=== PATIENT | female | born 1960 | race Hispanic/Latino ===

== ENCOUNTER 2018-06-17 06:48 | Emergency (ER) | payer OTHER ==
[2018-06-17 06:59] VITALS: BMI 27.8
[2018-06-17] MEDS ORDERED: Sodium Chloride 0.9% 1,000 ML IV STA (07:57)
--- NOTE | 2018-06-17 07:59 | ED PDOC ---
HPI: Headache History/Exam Limitations: no limitations Onset/Duration Of Symptoms: Hrs Current Symptoms Are (Timing): Better Severity: Mild Quality: Sharp Associated Symptoms: denies: Blurred Vision Additional History Per: Patient Additional Complaint(s): 58 y/o F w hx of migraines presented to ED complaining of intermittent, nonradiating sharp headache that began about 2:30am today, awaking her from sleep. She reports headache was 8-9/10, lasting for 3-4 minutes, localized to rt side of head ( similar to location of migraine headaches). She endorses that headache returned at 5am while she was at work with similar characteristics. She took 1 tab of sumigram (which she usually takes for her migraines), and headache has resolved since then. She denies any visual, sleep or weight changes, slurred speech, n,v, head trauma. PMH: migraines, herniated disc, vit d deficiency, hypercholesterolemia Meds: Sumigram, crestor, vit d supplements Allergies: denies Surghx: right retina surgery 1 month ago Famhx: noncontributory Sochx: denies all 12 points reviewed and are neg unless otherwise mentioned in HPI <Maricel Adame - Last Filed: 06/17/18 11:14> <Campbell Hartman - Last Filed: 06/17/18 12:52> Time Seen by Provider: 06/17/18 07:12 Chief Complaint (Nursing): Headache Supervising Attending Note - Supervising Attending Note The Documented history was done by the: Physician Noodle Catalyst Maker The documented physical exam was done by the: Physician Noodle Catalyst Maker The documented procedures were done by the: Physician Noodle Catalyst Maker - Attestation: I have personally seen and examined this patient.: Yes I have fully participated in the care of the patient.: Yes I have reviewed all pertinent clinical information: Yes - Notes: Notes:: Headache similar to previous migraines. Not worst in her life. No neck pain. <Campbell Hartman - Last Filed: 06/17/18 12:52> Past Medical History Vital Signs: Last Vital Signs Temp 97.8 F 06/17/18 06:59 Pulse 59 L 06/17/18 06:59 Resp 18 06/17/18 06:59 BP 135/76 04/16/19 06:59 Pulse Ox 100 06/17/18 06:59 - Medical History PMH: Hypercholesterolemia, Migraine, Mitral Valve Prolapse - Family History Family History: States: No Known Family Hx <Maricel Adame - Last Filed: 06/17/18 11:14> Vital Signs: Last Vital Signs Temp 98 F 06/17/18 11:04 Pulse 69 06/17/18 11:04 Resp 16 06/17/18 11:04 BP 117/71 06/17/18 11:04 Pulse Ox 100 06/17/18 11:17 <Campbell Hartman - Last Filed: 06/17/18 12:52> - Home Medications Home Medications: Ambulatory Orders Medication Instructions Recorded Aspirin 81 mg PO DAILY 12/26/13 Hydrocodone/Ibuprofen [Vicoprofen 1 tab PO Q8H #10 tab 12/26/13 7.5 mg-200 mg] Naproxen 500 mg PO BID 12/26/13 Omeprazole 20 mg PO BID 12/26/13 Rosuvastatin Calcium [Crestor] 10 mg PO DAILY 12/26/13 Simvastatin 20 mg PO DAILY 12/26/13 Tramadol Hydrochloride [Tramadol] 50 mg PO PRN PRN 12/26/13 Ibuprofen [Motrin] 600 mg PO TID 7 Days tab 06/17/18 - Allergies Allergies/Adverse Reactions: Allergies Allergy/AdvReac Type Severity Reaction Status Date / Time No Known Allergies Allergy Verified 06/17/18 07:07 Physical Exam - Physical Exam Appears: Positive for: Non-toxic Head Exam: Positive for: ATRAUMATIC, NORMAL INSPECTION Eye Exam: Positive for: Normal appearance, PERRL Neck: Positive for: Normal Cardiovascular/Chest: Positive for: Regular Rate, Rhythm Respiratory: Positive for: Normal Breath Sounds Gastrointestinal/Abdominal: Positive for: Bowel Sounds, Soft. 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 No pain. Similar to previous. Fu with pcp. AAOx3. Tolerated PO. Ambulated with no issues. <Campbell Hartman - Last Filed: 06/17/18 12:52> Disposition - Patient ED Disposition Is Patient to be Admitted: No - Disposition Disposition Time: 10:50 <Maricel Adame - Last Filed: 06/17/18 11:14> <Campbell Hartman - Last Filed: 06/17/18 12:52> - Clinical Impression Clinical Impression: Headache - Disposition Referrals: Sudeep Wilkins MD [Primary Care Provider] - 06/18/18 Condition: STABLE Additional Instructions: Return if not better in 3 days. Prescriptions: Ibuprofen [Motrin] 600 mg PO TID 7 Days tab Instructions: Headache, Adult Forms: [facility] ([place]ian), [facility] ED School/Work Excuse - PA / TRIM SETTER / Resident Statement /DO has reviewed & agrees with the documentation as recorded. <Maricel Adame - Last Filed: 06/17/18 11:14>
[2018-06-17 11:05] VITALS: BP 117/71; PULSE 69; RESP 16; TEMP 98
[2018-06-17 11:09] VITALS: O2SAT 100
== END 2018-06-17 11:05 | disposition home or self-care (01) ==
LOC: H.ER 06:48
DX: R51 Headache (principal); I34.1 Nonrheumatic mitral (valve) prolapse; Z79.82 Long term (current) use of aspirin
CPT/HCPCS: 96374; 99285; J2765; J7030